=== PATIENT | female | born 1955 | race Caucasian/White ===

== ENCOUNTER 2024-11-09 10:27 | Emergency (ER) | payer MEDICARE, BC, SELFPAY ==
--- NOTE | 2024-11-09 10:50 | XR_ITS ---
Examination: CT abdomen and pelvis without contrast. Coronal 3-D reconstructions. Sagittal 2-D reconstructions. Date and time of exam:November 09, 2024 1113 hours INDICATIONS: Bilateral flank pain with hematuria today CTDI: vol (mGy): 12.1 DLP: (mGycm): 639 Technique: Axial images of the abdomen have been obtained, 3 mm slice thickness Intravenous contrast material has not been administered. Low dose protocols were performed. One or more of the following dose reduction techniques were used; automated exposure control, adjustment of the mA and/or KV according to patient size, use of iterative reconstruction technique. Findings: No focal liver or splenic lesions Multiple gallstones No pancreatic mass 4 mm lower pole right renal calculus Minimal right hydronephrosis, no ureteral calculi Aorta normal size Normal appendix No pelvic mass No bladder mass, bladder wall thickening is evident anteriorly measuring up to 8 mm Moderate osteopenia IMPRESSION: 4 mm lower pole right renal calculus Findings most consistent with right urinary tract infection, cystitis, clinical correlation advised
--- NOTE | 2024-11-09 10:50 | PD.EDFMALE ---
ED Female Urogenital RME/HPI General Chief complaint: Urogenital-Female Stated complaint: BLOOD IN URINE Arrival date/time: 11/09/24 10:27 RME / HPI RME / HPI Narrative: DR. CHIRINOS MAIN ED EVALUATION: This section includes all my notes and documentations, including HPI, PE, and ED course.? Waldo Chirinos MD HPI: 69 year old female with past medical history significant for atrial fibrillation on Eliquis presents to the Emergency Department with a couple day history of hematuria. No abdominal pain or back pain or flank pain. No fever or chills. No nausea or vomiting. No other complaints. ROS: All negative except as documented in HPI. Physical Exam: General:? Alert and oriented.? No acute distress when remaining still.? Eyes:? Conjunctivae and lids clear. ENT:? No nasal congestion.? ? Neck:? Supple. Heart:? RRR. Lungs:? No respiratory distress.? Good air movement.? No rhonchi, wheezing, rales.? Abdomen:? Soft and nontender.? Back: No CVA tenderness. Skin:? Warm and dry.? Neuro:? Alert and oriented X 3.? I reviewed all diagnostic test results. My review of the CT report is?4 mm lower pole right renal calculus. Blood tests unremarkable. UA remarkable for hematuria. At this point, diagnoses include right kidney stone and hematuria. Recommended outpatient treatment. Based on my best medical judgment, made decision no further evaluation or treatment indicated at this time.? Patient understands and agrees to the discharge instructions customized and printed, see below. Discharge Instructions from Dr. Chirinos: --You have a 4 mm right kidney stone. It's almost outside the kidney. Once it gets outside the kidney, you will have severe pain. --You are taking Eliquis for the benefit of preventing heart attacks and strokes. But the risks include bleeding which is incurring in your urinary system. --Stop Eliquis for 5 days to prevent worsening bleeding. --Increase oral fluid to flush your kidneys.? Maintain clear urine. if it's dark or yellow then increase oral fluid.? If you don't do this, you won't pass it.? --Take Zofran as needed for nausea or vomiting. --Take Ketorolac/Toradol for pain control.? And Tylenol with Codeine.? If you are in severe pain, you won't pass it.?? --Strain your urine so you can catch the stone when you pass it.? --See a private doctor on 11/10/2024 for recheck and further care. Take the stone with you for analysis because certain stones can be prevented.? If you didn't pass it, ask for referral to see urologist.? Who will take the stone out for you. Dr. Pham ([phone]) is urologist in [facility]. --Seek immediate medical care with fever over 100.4, persistent vomiting despite Zofran, intolerable pain, or with any concerns.?? Waldo Chirinos MD Related Data Previous Rx's ?Medication ?Instructions ?Recorded acetaminophen 300 mg-codeine 30 mg 2 tab PO Q8H PRN pain #20 tabs 11/09/24 tablet ketorolac 10 mg tablet 10 mg PO Q8H PRN pain 5 days #10 11/09/24 tabs ondansetron 4 mg disintegrating 4 mg PO TID PRN nausea and 11/09/24 tablet vomiting 30 days #10 tabs Allergies Allergy/AdvReac Type Severity Reaction Status Date / Time No Known Allergies Allergy Verified 11/09/24 10:27 Course Quality Measures none Orders Category Date Time Status Miscellaneous Nursing Order NOW Care 11/09/24 12:[address] abdomen pelvis wo con Stat Exams 11/09/24 10:50 Completed Bilirubin,Direct Stat Lab 11/09/24 11:36 Completed CBC Stat Lab 11/09/24 11:36 Completed CMP [Comprehensive Metabolic Panel] Stat Lab 11/09/24 11:36 Completed Magnesium Stat Lab 11/09/24 11:36 Completed PT [Prothrombin Time with INR] Stat Lab 11/09/24 11:36 Completed PTT [Partial Thromboplastin Time] Stat Lab 11/09/24 11:36 Completed UA, C/S IF [Urinalysis, C/S if Indicated] Stat Lab 11/09/24 11:13 Completed Vital Signs Vital signs: Vital Signs Temperature 98.3 F 11/09/24 11:04 Pulse Rate 60 11/09/24 11:04 Respiratory Rate 18 11/09/24 11:04 Blood Pressure 127/72 11/09/24 11:04 Pulse Oximetry (%) 97 11/09/24 11:04 Oxygen Delivery Method Room Air 11/09/24 11:04 Urogenital - Female MDM Narrative MDM Narrative:: I, Paulina Linton, am scribing for and in the presence of Dr. Chirinos. 69 year old female with past medical history significant for atrial fibrillation on Eliquis presents to the Emergency Department with a couple day history of hematuria. No abdominal pain or back pain or flank pain. No fever or chills. No nausea or vomiting. No other complaints. Patient data External records reviewed:: [facility] previous records Clinical information provided by:: patient Social determinants that could affect healthcare access:: none Patient has the following chronic illnesses:: Atrial fibrillation on Eliquis How is presenting disease/condition affected by chronic disease/condition?: exacerbated by Evaluation data The following diagnostics were reviewed and interpreted by me:: lab results and radiology exam(s) Lab and/or radiology exams considered but not ordered:: none Interpretation Summary: I reviewed all diagnostic test results. My review of the CT report is?4 mm lower pole right renal calculus. Blood tests unremarkable. UA remarkable for hematuria. Medications / Prescriptions Medications or Prescriptions considered but not ordered:: none Medication administrations:: none Consultations Consultation(s) initiated? (list below): No Diagnosis Urogenital Female Differential Diagnosis: urinary tract infection, ovarian cyst, vaginitis and dysmenorrhea Most likely diagnosis given after review of the tests above:: Right kidney stone Hematuria Admission Indicated Admission indicated?: not indicated Explain why admission is indicated or not indicated:: With no serious condition, there was no indication for admission. Admission Request Was there a request for admission?: No Disposition Plan Disposition Plan: Discharge Discharge Attestation Discharge Attestation: The patient and all family members were given an opportunity to ask questions and understood the discharge instructions. Discharge instructions specifically effects, indications for sooner follow up or return to the emergency department, and the expected course of current diagnosis. Patient condition: Stable Discharge Plan Plan Patient Disposition: HOME (Self Care) Prescriptions/Referrals Prescriptions/Med Rec: New acetaminophen-codeine 300-30 mg tablet 2 tab PO Q8H MDD 6 PRN (Reason: pain) Qty: 20 0RF ketorolac 10 mg tablet 10 mg PO Q8H PRN (Reason: pain) 5 Days Qty: 10 0RF ondansetron 4 mg tablet,disintegrating 4 mg PO TID PRN (Reason: nausea and vomiting) 30 Days Qty: 10 0RF Referrals: Ewelina Morales [Primary Care Provider] - In 1 week Problem List Clinical Impression: Right kidney stone, Hematuria Patient/Caregiver Discharge Instructions Discharge Activity: activity as tolerated Education Materials: ED Hematuria, ED Kidney Stone Undescended No ... Additional Instructions: Discharge Instructions from Dr. Chirinos: --You have a 4 mm right kidney stone. It's almost outside the kidney. Once it gets outside the kidney, you will have severe pain. --You are taking Eliquis for the benefit of preventing heart attacks and strokes. But the risks include bleeding which is incurring in your urinary system. --Stop Eliquis for 5 days to prevent worsening bleeding. --Increase oral fluid to flush your kidneys.? Maintain clear urine. if it's dark or yellow then increase oral fluid.? If you don't do this, you won't pass it.? --Take Zofran as needed for nausea or vomiting. --Take Ketorolac/Toradol for pain control.? And Tylenol with Codeine.? If you are in severe pain, you won't pass it.?? --Strain your urine so you can catch the stone when you pass it.? --See a private doctor on 11/10/2024 for recheck and further care. Take the stone with you for analysis because certain stones can be prevented.? If you didn't pass it, ask for referral to see urologist.? Who will take the stone out for you. Dr. Pham ([phone]) is urologist in [facility]. --Seek immediate medical care with fever over 100.4, persistent vomiting despite Zofran, intolerable pain, or with any concerns.?? Print Language: Kiswahili Stand Alone Forms: [employer] Award Info., Patient Portal Info Letter
[2024-11-09 11:04] VITALS: BP 127/72; PULSE 60; RESP 18; TEMP 36.8; O2SAT 97; BMI 33.8
[2024-11-09 11:24] LABS: Collection Type, Urine Clean Catch
[2024-11-09 11:38] LABS: Bilirubin,Urine Negative (Negative); Blood,Urine 3+ (Negative); Clarity,Urine Turbid (Clear/Hazy); Color,Urine Lt-Brown (Lt Yel-Yel); Culture Indicated,Urine Not Indicated; Glucose, Urine Negative (Negative); Ketones,Urine Negative (Negative); Leukocyte Esterase,Urine Negative (Negative); Nitrite,Urine Negative (Negative); Protein,Urine 1+ (Neg - Trace); RBC,Urine 169 /hpf (0-3); Specific Gravity,Urine 1.007 (1.001-1.035); Squamous Epithelial Cell,Urine < 1 /hpf (0-5); Urobilinogen,Urine Negative mg/dL (0.0-1.0); WBC,Urine 3 /hpf (0-5)
[2024-11-09 12:04] LABS: Basophils % (Auto) 1 % (0-2.5); Eosinophils # (Auto) 0.1 Thou/mm3 (0.0-0.5); Eosinophils % (Auto) 3 % (0-10); Hemoglobin 13.5 g/dL (12.0-16.0); Immature Granulocytes % (Auto) 0 % (0-0); Lymphocytes # (Auto) 1.3 Thou/mm3 (1.0-4.8); Lymphocytes % (Auto) 31 % (10-50); Mean Corpuscular HGB Conc 33.8 g/dl (31.0-37.0); Mean Corpuscular Volume 89 fL (80-100); Monocytes # (Auto) 0.4 Thou/mm3 (0.0-0.8); Monocytes % (Auto) 10 % (0-12); Neutrophils # (Auto) 2.3 Thou/mm3 (1.8-7.7); Neutrophils % (Auto) 55 % (37-80); Nucleated Red Blood Cell % 0 /100 WBC (0); Platelet Count 179 Thou/mm3 (140-440); RDW Standard Deviation 40.8 fL (36.4-46.3); White Blood Count 4.2 Thou/mm3 (3.6-11.0)
[2024-11-09 12:19] LABS: INR 1.1 (0.9-1.3); Partial Thromboplastin Time 31.9 Seconds (22.0-36.0); Prothrombin Time 11.9 Seconds (9.0-12.2)
[2024-11-09 12:31] LABS: Alanine Aminotransferase 12 U/L (10-49); Albumin, Serum 4.3 gm/dL (3.4-4.8); Albumin/Globulin Ratio 1.9 (1.2-2.2); Alkaline Phosphatase 48 U/L (46-116); Anion Gap 7 (7-16); Aspartate Amino Transferase 22 U/L (0-34); BUN/Creatinine Ratio 12 Ratio (12-20); Bilirubin,Direct 0.3 mg/dL (0.0-0.3); Bilirubin,Total 0.9 mg/dL (0.3-1.2); Blood Urea Nitrogen 12 mg/dL (9-23); Calcium 9.4 mg/dL (8.3-10.6); Calcium (Corrected) 9.4 mg/dL (8.5-10.1); Carbon Dioxide 29.4 mMol/L (20.0-31.0); Chloride 107 mMol/L (98-107); Estimated Creatinine Clearance 53.3 mL/min (>60); Globulin 2.3 gm/dL (2.3-3.5); Glucose 86 mg/dL (74-106); Osmolality,Calculated 283 (275-295); Potassium 3.7 mMol/L (3.4-5.1); Sodium 143 mMol/L (136-145); Total Protein 6.6 gm/dL (5.7-8.2); eGFR > 60 See Note
[2024-11-09 13:20] VITALS: BP 133/74; PULSE 57; RESP 16; TEMP 36.6; O2SAT 98
== END 2024-11-09 13:20 | disposition home or self-care (01) ==
PROVIDERS: Emergency Provider Emergency Medicine; PCP Family Medicine
DX: N20.0 Calculus of kidney (principal)
CPT/HCPCS: 36415; 74176; 80053; 81001; 82248; 83735; 85025; 85610; 85730; 99284

== ENCOUNTER 2025-01-19 10:15 | Day surgery (SDC) | payer MEDICARE, BC, SELFPAY ==
[2025-01-17 09:05] VITALS: BMI 32.9
--- NOTE | 2025-01-18 07:00 | EKG_ITS ---
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
[2025-01-18 09:25] LABS: Anion Gap 9 (7-16); BUN/Creatinine Ratio 11 Ratio (12-20); Blood Urea Nitrogen 10 mg/dL (9-23); Calcium 9.9 mg/dL (8.3-10.6); Carbon Dioxide 29.0 mMol/L (20.0-31.0); Chloride 106 mMol/L (98-107); Creatinine (Component) 0.9 mg/dL (0.6-1.3); Estimated Creatinine Clearance 58.4 mL/min (>60); Glucose 86 mg/dL (74-106); Osmolality,Calculated 284 (275-295); Potassium 4.2 mMol/L (3.4-5.1); Sodium 144 mMol/L (136-145); eGFR > 60 See Note
[2025-01-18 09:46] LABS: INR 1.0 (0.9-1.3); Partial Thromboplastin Time 26.6 Seconds (22.0-36.0); Prothrombin Time 10.5 Seconds (9.0-12.2)
[2025-01-18 11:43] LABS: Basophils # (Auto) 0.0 Thou/mm3 (0.0-0.2); Basophils % (Auto) 1 % (0-2.5); Eosinophils # (Auto) 0.1 Thou/mm3 (0.0-0.5); Eosinophils % (Auto) 3 % (0-10); Hematocrit 41.4 % (36.0-46.0); Hemoglobin 13.5 g/dL (12.0-16.0); Immature Granulocytes Auto 0.00 Thou/mm3 (0.00-0.00); Lymphocytes # (Auto) 1.3 Thou/mm3 (1.0-4.8); Lymphocytes % (Auto) 34 % (10-50); Mean Corpuscular HGB Conc 32.6 g/dl (31.0-37.0); Mean Corpuscular Hemoglobin 29.7 pg (25.0-35.0); Mean Corpuscular Volume 91 fL (80-100); Monocytes # (Auto) 0.4 Thou/mm3 (0.0-0.8); Monocytes % (Auto) 12 % (0-12); Neutrophils # (Auto) 1.9 Thou/mm3 (1.8-7.7); Neutrophils % (Auto) 50 % (37-80); Nucleated Red Blood Cell # 0.00 Thou/mm3 (0.00-0.00); Nucleated Red Blood Cell % 0 /100 WBC (0); Platelet Count 143 Thou/mm3 (140-440); RDW Standard Deviation 42.5 fL (36.4-46.3); Red Blood Count 4.55 Miln/mm3 (4.00-5.20); White Blood Count 3.7 Thou/mm3 (3.6-11.0)
[2025-01-19] VITALS (8 sets, daily range): BP systolic 102–127; BP diastolic 52–77; PULSE 56–67; RESP 13–18; TEMP 36.4–36.6; O2SAT 93–99
--- NOTE | 2025-01-19 13:53 | ESOP_ITS ---
Cardiac Cath Procedure Procedure Name Date of procedure: 01/19/25 MANAGER PEOPLE: Tyrone Gonsalez MD PROCEDURE PERFORMED: 1. Left heart cardiac catheterization- Left and right coronary angiograms with LVEDP measurement and left ventriculogram 2. Ultrasound-guided access of the right radial artery 3. Conscious sedation for 30 minutes.. Procedure Narrative HISTORY AND INDICATIONS: 67-year-old female with a past medical history of paroxysmal atrial fibrillation, hypothyroidism. Patient had ischemic cardiac work up for cardiac risk evaluation. Nst showed abnormal myocardial perfusion study, intermediate risk, as there is decreased uptake in the inferior lateral segment of the left ventricle with stress and improves with rest indicating ischemia. Patient was joelle in for an elective cardiac catheterization. Patient was explained the risk benefits and alternatives of performing a left heart cardiac catheterization including the risk of bleeding, heart attack, stroke and in detail and the agreeable for the procedure. Consent signed, placed in the chart and H&P updated. DESCRIPTION OF PROCEDURE: The patient was brought to the cardiac catheterization lab and all asceptic precautions were followed. Patient was given 1 Mg of Versed and 50 mcg of fentanyl for moderate conscious sedation. 2 mL of lidocaine was given in the right wrist. The right radial artery was accessed via the ultrasound guidance as well as micropuncture technique. A 6 [place] glide sheath was introduced. We then used a 5 [place] TIG 4 catheter to perform the left and right coronary angiograms as well as a left ventriculogram which showed the following findings. 1. Left ventricular ejection fraction was normal at 60 to 65% without any regional wall motion abnormalities. LVEDP was normal at 12 mmHg. There was no significant transvalvular aortic gradient. 2. Right dominant circulation 3. Left main artery is a large-caliber vessel gives rise to LAD, LCX and without any significant disease. 4. LAD is a large sized artery, gives rise to a medium size diagonal and wit hout show any significant disease. 5. LCx is a large sized artery, gives rise to a medium OM1 and small OM2 without any significant disease. 6. RCA is a large artery, gives rise to a medium RPDA and RPL without any significant disease. A radial band was used to achieve the hemostasis of the right radial artery access. 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 Complications: None Specimens: None Blood loss: Estimated 5-10 ml Summary/findings: 1. Abnormal Stress test: LHC showed normal coronaries with only minimal luminal irregularities and no angiographically significant obstruction. 2. LVEF normal at 60-65% and LVEDP normal at 12 mmHg. No significant transvalvular aortic gradient. Recommendations: 1. Recommend aggressive medical treatment and aggressive risk factor modification. 2. Recommended no lifting more than 5 pounds for next 7-10 days and follow up in my office in 7 days. Tyrone Gonsalez MD Interventional Cardiology.
--- NOTE | 2025-01-19 14:15 | PC.NURSE ---
TR band removed at this time. Surgical site asymptomatic, no active bleeding, no hematoma noted on right upper extremity or around the surgical site. Capillary refill < 3 seconds. No noted changes in color or temperature on right upper extremity. Patient denies general and localized pain, no loss in sensation, no tingling or numbness felt to right upper extremity. Tagaderm and Coban wrap applied. Will continue to monitor
--- NOTE | 2025-01-19 14:30 | PC.NURSE ---
Surgical site remains asymptomatic (right wrist), no active bleeding, no hematoma noted on right upper extremity or around the surgical site. Capillary refill < 3 seconds. No noted changes in color or temperature on right upper extremity. Patient denies generalized and localized pain, no loss in sensation, no tingling or numbness felt to right upper extremity. Tagaderm and Coban wrap in place, clean, and dry. Will continue to monitor
== END 2025-01-19 15:11 | disposition home or self-care (01) ==
PROVIDERS: PCP Family Medicine; Referring Provider Internal Medicine Cardiovascular Disease; Visit Provider Internal Medicine Cardiovascular Disease
PROC: (CPT 93458; principal; 2025-01-19 11:45)
DX: R94.39 Abnormal result of other cardiovascular function study (principal); I48.0 Paroxysmal atrial fibrillation; E03.9 Hypothyroidism, unspecified; N20.0 Calculus of kidney; E66.01 Morbid (severe) obesity due to excess calories; Z01.810 Encounter for preprocedural cardiovascular examination; R00.1 Bradycardia, unspecified; Z68.32 Body mass index [BMI] 32.0-32.9, adult
CPT/HCPCS: 93458; 36415; 80048; 85025; 85610; 85730; 93005; 99152; A4649; C1769; C1887; C1894; J0153; J0168; J0282; J0461; J1643; J2250; J2312; J2371; J3010; J3490; Q9967